=== PATIENT | male | born 1955 ===

== ENCOUNTER 2023-11-29 00:24 | Day surgery (SDC) | payer MEDICARE, SELFPAY ==
[2023-11-26 13:58] VITALS: BMI 23.1
[2023-11-29] VITALS (8 sets, daily range): BP systolic 104–136; BP diastolic 68–100; PULSE 65–73; RESP 12–20; TEMP 36.6–36.9; O2SAT 95–99
[2023-11-29 10:27] LABS: Basophils Absolute Auto 0.1 K/mm3 (0.0-0.1); Basophils Percent Auto 0.7 % (0.2-1.2); Eosinophils Absolute Auto 0.7 K/mm3 (0-0.3); Eosinophils Percent Auto 10.8 % (0-4.4); Hematocrit 51.8 % (42.0-52.0); Hemoglobin 17.2 g/dL (14.0-18.0); Immature Granulocyte Absolute 0.01 K/mm3 (0.00-0.031); Immature Granulocyte Percent A 0.1 % (0-0.5); Lymphocytes Absolute Auto 2.24 K/mm3 (0.9-3.2); Lymphocytes Percent Auto 32.6 % (18.3-44.2); Mean Corpuscular HGB Conc 33.2 g/dl (32-36); Mean Corpuscular Hemoglobin 29.7 pg (26-34); Mean Corpuscular Volume 89.5 fl (80-100); Mean Platelet Volume 10.3 fl (7.4-10.4); Monocytes Absolute Auto 0.5 K/mm3 (0.1-0.6); Monocytes Percent Auto 7.7 % (2.6-8.5); Neutrophils Absolute Auto 3.3 K/mm3 (1.3-6.7); Neutrophils Percent Auto 48.1 % (45.5-73.1); Platelet Count Result 250 k/mm3 (150-375); Red Blood Count 5.79 M/mm3 (4.6-6.20); Red Cell Distribution Width 13.2 % (11.5-14.5); White Blood Count 6.9 K/mm3 (4.5-10.0)
[2023-11-29 10:38] LABS: Anion Gap 8 mmol/L (8-16); Blood Urea Nitrogen 12 mg/dL (9-20); Calcium 9.5 mg/dL (8.4-10.2); Carbon Dioxide 27 mmol/L (22-30); Chloride 101 mmol/L (98-107); Estimated CRCL calculation 75 ml/min; Estimated Glomerular Filt Rate > 60; Glucose 96 mg/dL (65-110); Potassium 4.2 mmol/L (3.4-5.0); Sodium 136 mmol/L (137-145)
--- NOTE | 2023-11-29 12:52 | WPDMODSED ---
Moderate Sedation Note-Pt Data Patient Data Diagnosis: Coronary artery disease with previous myocardial infarction and percutaneous revascularization Present Complaint: exertional chest pain compatible with angina Procedure to be performed/Plan: follow-up left heart catheterization Allergies Allergy/AdvReac Type Severity Reaction Status Date / Time No Known Allergies Allergy Verified 11/26/23 14:14 Home Medications Medication Instructions Recorded Confirmed Type aspirin 81 mg capsule 81 mg PO DAILY 11/26/23 11/26/23 History carvedilol 6.25 mg tablet (Coreg) 6.25 mg PO DAILY 11/26/23 11/26/23 History clopidogrel 75 mg tablet (Plavix) 75 mg PO DAILY 11/26/23 11/26/23 History lisinopril 5 mg tablet (Zestril) 5 mg PO DAILY 11/26/23 11/26/23 History nitroglycerin 0.4 mg sublingual 0.4 mg sublingual Q5-15M PRN chest 11/26/23 11/26/23 History tablet pain Current Medications: Active Medications Sodium Chloride (Normal Saline Iv) 500 mls @ 100 mls/hr IV CONT .Q5H [facility] Sedation/Anesthesia: No previous sedation/anesthesia problems (including family history). [facility] Social History Social History Smoking status: Current every day smoker Alcohol intake: current Drinks per week: 1 Substance use type: does not use Living arrangements: with family Spiritual care concerns: No Mod Sed Physical Exam Physical Exam Pre Procedural Exam: Normal: Appearance, Neck, Throat, Airway, Lungs, Heart Size, Heart Rate, Heart Rhythm, Neuro Exam and Extremities Hours since solid foods: 12 Hours since liquid intake: 12 Mallampati Classification: class II Internal Medicine - PN: Obj Da Vital Signs Vital Signs: Vital Signs - 24 hr 11/29/23 10:28 Temperature 36.9 C Pulse Rate 73 Respiratory Rate 14 Blood Pressure 136/97 H Pulse Oximetry 96 Oxygen Delivery Room Air Meds/Results Medications: Active Medications Generic Name Dose Route Start Last Admin Trade Name Freq PRN Reason Stop Dose Admin Sodium Chloride 500 mls @ 100 mls/hr 11/29/23 10:00 Normal Saline Iv IV CONT .Q5H [facility] Labs 11/29/23 10:19 11/29/23 10:19 Labs: Laboratory Results - last 24 hr 11/29/23 10:19 WBC 6.9 RBC 5.79 Hgb 17.2 Hct 51.8 MCV 89.5 MCH 29.7 MCHC 33.2 RDW 13.2 Plt Count 250 MPV 10.3 Immature Gran % (Auto) 0.1 Neut % (Auto) 48.1 Lymph % (Auto) 32.6 [place] % (Auto) 7.7 Eos % (Auto) 10.8 H Baso % (Auto) 0.7 Lymph # (Auto) 2.24 [place] # (Auto) 0.5 Eos # (Auto) 0.7 H Baso # (Auto) 0.1 Abs Immat Gran (auto) 0.01 Absolute Neuts (auto) 3.3 Absolute Nucleated RBC 0.0 Nucleated RBC % 0.0 Sodium 136 L Potassium 4.2 Chloride 101 Carbon Dioxide 27 Anion Gap 8 BUN 12 Creatinine 0.90 Estim Creat Clear Calc 75 Estimated GFR > 60 Glucose 96 Calcium 9.5 ASA Classification/Sedation ASA Classification/Sedation ASA Class: III Emergent: No Risks: Risks, benefits and alternatives explained and patient/family accepted plan for sedation. Patient re-evaluated immediately prior to sedation.
--- NOTE | 2023-11-29 13:56 | WPDCARDPROC ---
Cardiac Cath Procedure Note Date of procedure:: 11/29/23 Performing physician:: Jose David Carpenter MD Indication:: exertional angina occurring in a patient with known coronary disease and ischemic LV dysfunction Brief clinical history:: this is a 68-year-old man with a long history of coronary disease. He initially underwent PCI of the ostial segment of the LAD as an emergency in the setting of anterior DE. He then underwent emergency right coronary intervention in the setting of inferior wall DE in 2019. He has done well with medical therapy for this and for ongoing ischemic LV dysfunction he recently however is developed symptoms of typical exertional angina in this setting a follow-up angiogram has been recommended. Procedure Procedure performed:: Left ventriculogram coronary angiography Angio-Seal to right femoral artery Sedation/Medication given:: fentanyl 50 mg Versed 2 mg case start time 1329 hours case end time 1:53 p.m. sedation provided by Madyson Alarcon RN, trained observer Access site:: right femoral artery Estimated blood loss:: 20 cc Procedure note:: patient was brought to the cardiac catheterization lab in the postabsorptive state where the right femoral triangle was prepared in the normal fashion. Anesthesia was provided with 1% lidocaine locally. Using the modified Seldinger technique right was punctured and a 5 Mongolian vascular sheath was placed. After this I used a 5 Mongolian angled pigtail catheter to measure left-sided hemodynamics and to inject left ventriculogram in the [place] projection. Following this I advanced a 5 Mongolian FL4 catheter to the aortic root and it was not able to be maneuvered into the left main. I then successfully engage the left main using a 5 Mongolian FL 3.5. left coronary angiography was then carried out in multiple projections. Following this I used a 5 Mong[place]ian JR4 catheter to engage and inject the right coronary artery in orthogonal projections. After this the case was terminated in the cineangiograms were reviewed. The femoral artery puncture site was examined using an angiogram through the sheath after which a 6 Mongolian Angio-Seal device was deployed with a good hemostatic result. Patient tolerated procedure well there were no apparent complications. He left the [employer] with no evidence of groin hematoma. Findings:: Hemodynamics: Central aortic pressure 1 2 over 70 left ventricle 132 over is 0 end-diastolic pressure 10 gradient pullback across the aortic valve. Left ventricle: The LV is moderately dilated there is moderate to severe global systolic hypokinesia identified with an ejection fraction visually estimated to be at 30%. The left main coronary artery is medium in caliber. There are no significant lesions in the left main there is a tortuous segment in the mid left main but no significant disease. The distal aspect of the left main has very modest atherosclerotic narrowing. The left anterior descending is a medium caliber artery extending down to the apex. There is stent material seen in the ostial to proximal segment of the LAD and then a bifurcation stent into the origin of the major diagonal branch. The ostium of the LAD has 99% in stent stenosis. Distal to this the LAD has mild luminal irregularities but appears to be an artery of good caliber. The circumflex system high OM1 branch takes off is a ramus intermedius branch. This vessel has mild luminal irregularity but no significant disease. It is extremely close to the ostium of the LAD as described above. The trunk of the circumflex is medium in caliber gives rise to a more distal marginal branch. This segment of the circumflex is free of significant stenosis. The right coronary artery is dominant to the posterior circulation and was a moderate to large caliber artery. There is stent material in the proximal to ostial right coronary segment which is a 3.5 mm stent. This stent has os
== END 2023-11-29 16:51 | disposition home or self-care (01) ==
PROVIDERS: PCP Family Medicine Adolescent Medicine; Visit Provider Specialist
PROC: 4A023N7 Measurement of Cardiac Sampling and Pressure, Left Heart, Percutaneous Approach (ICD-10-PCS; CPT 93452; principal; 2023-11-29 11:30)
DX: I25.118 Atherosclerotic heart disease of native coronary artery with other forms of angina pectoris (principal); I10 Essential (primary) hypertension; T82.855A Stenosis of coronary artery stent, initial encounter; Y83.8 Other surgical procedures as the cause of abnormal reaction of the patient, or of later complication, without mention of misadventure at the time of the procedure; J44.9 Chronic obstructive pulmonary disease, unspecified; G47.30 Sleep apnea, unspecified; Z79.02 Long term (current) use of antithrombotics/antiplatelets; Z79.82 Long term (current) use of aspirin; F17.210 Nicotine dependence, cigarettes, uncomplicated
CPT/HCPCS: 36415; 80048; 85025; 93458; C1760; C1887; C1894; G0269; J1644; J2250; J3010; J7040

== ENCOUNTER 2024-04-03 16:15 | Outpatient (RCR) | payer MEDICARE, SELFPAY ==
[2024-01-07 12:02] VITALS: BP 122/58; PULSE 55; RESP 18; O2SAT 98
[2024-01-07 12:12] VITALS: PULSE 55
== END 2024-04-03 16:31 | disposition home or self-care (01) ==
LOC: ANHCPREHAB 16:15
PROVIDERS: PCP Family Medicine Adolescent Medicine; Visit Provider Specialist
DX: Z95.1 Presence of aortocoronary bypass graft (principal)
CPT/HCPCS: 93798